=== PATIENT | male | born 2005 | race Caucasian/White ===

== ENCOUNTER 2024-05-08 15:33 | Outpatient (CLI) | payer OTHER | END 2024-05-08 15:34 | disposition home or self-care (01) | LOC: CSHMRI 15:33 | PROVIDERS: ATTEND Family Medicine Sports Medicine | DX: S83.512A Sprain of anterior cruciate ligament of left knee, initial encounter (principal); S83.522A Sprain of posterior cruciate ligament of left knee, initial encounter; S80.02XA Contusion of left knee, initial encounter ==